=== PATIENT | male | born 1970 | race Caucasian/White ===

== ENCOUNTER 2019-04-21 12:50 | Inpatient (IN) | payer MEDICAID ==
[~2019-04-21] VITALS: Ht 165.1 cm; Wt 88.5 kg
[2019-04-21 12:00] VITALS: BP 116/76
--- NOTE | 2019-04-21 13:00 | NUR ---
RN ADMITTING NOTES ADMITTED A 48 YEARS OLD, M, TO UNIT VIA GURNEY ACCOMPANIED BY 2 AMBULANCE STAFF. A/O X4. ABLE TO MAKE NEEDS KNOWN. NO SIGNS OF DISTRESS NOTED AT THIS TIME. PATIENT ORIENTED TO ROOM, UNIT AND STAFF. V/S TAKEN AND RECORDED. REFUSED PHYSICAL ASSESSMENT. LUNGS CLEAR ON AUSCULTATION. IV ACCESS ON RAC#18, PATENT AND INTACT. SAFETY MEASURES IN PLACE, BED PLACED IN LOWEST POSITION WITH Addendum: 04/21/19 at 1427 by LEANDRA DUBOSE RN RN ADMITTING NOTES ADMITTED A 48 YEARS OLD, M, TO UNIT VIA GURNEY ACCOMPANIED BY 2 AMBULANCE STAFF. A/O X4. ABLE TO MAKE NEEDS KNOWN. FAMILY AT BEDSIDE. NO SIGNS OF DISTRESS NOTED AT THIS TIME. PATIENT ORIENTED TO ROOM, UNIT AND STAFF. V/S TAKEN AND RECORDED. REFUSED PHYSICAL ASSESSMENT. LUNGS CLEAR ON AUSCULTATION. IV ACCESS ON RAC#18, PATENT AND INTACT. NOTIFY DR. ARRIETA REGARDING THE NEW ADMIT, AWAITING FOR ORDERS. SAFETY MEASURES IN PLACE, BED PLACED IN LOWEST LOCKED POSITION WITH SIDE RAILS UP, CALL LIGHT PLACED WITHIN EASY REACH. WILL CONTINUE TO MONITOR.
[2019-04-21] MEDS ORDERED: MAG HYDROX/AL HYDROX/SIMETH 30 ML UDC PO PRN (14:00)
[2019-04-21] MEDS ORDERED: MAGNESIUM HYDROXIDE 30 ML UDC PO PRN (14:00)
[2019-04-21] MEDS ORDERED: ONDANSETRON HCL/PF 4 MG/2 ML VIAL IVP PRN (14:00)
[2019-04-21] MEDS ORDERED: Z GUARD REMEDY 2 OZ OINT TP PRN (14:00)
[2019-04-21] MEDS ORDERED: HYDROCODONE/APAP 5/325MG 1 EACH TABLET PO PRN (14:00)
[2019-04-21] MEDS ORDERED: ACETAMINOPHEN 325 MG TABLET PO PRN (14:00)
[2019-04-21] MEDS ORDERED: IBUP-1957 PO (14:11)
[2019-04-21] MEDS ORDERED: TRAM50TA2 PO (14:11)
[2019-04-21] MEDS ORDERED: CYCL10TA9 PO (14:11)
[2019-04-21 16:00] VITALS: BP 109/70
--- NOTE | 2019-04-21 18:37 | NUR ---
RN CLOSING NOTES PATIENT IN BED RESTING COMFORTABLY IN MODERATE HIGH BACK REST. A/OX 4. ABLE TO MAKE NEEDS KNOWN. NO SIGNS OF DISTRESS NOTED. ON TELEMONITORING WITH CURRENT READING OF SR WITH HR OF 80'S. IV ACCESS ON RAC #18, PATENT AND INTACT. SAFETY MEASURES IN PLACE, BED IN LOWEST LOCKED POSITION WITH SIDE RAILS UP X2. CALL LIGHT WITHIN EASY REACH. WILL ENDORSE TO REFINER OPERATOR NURSE FOR RENE.
--- NOTE | 2019-04-21 19:40 | NUR ---
ROAD PRODUCTION GENERAL MANAGER NOTE: PATIENT RESTING IN BED, NO ACUTE DISTRESS NOTED. BREATHING EVEN AND UNLABORED, NO SOB NOTED. IV TO RAC IN PLACE, TELE READING SR 84. BED LOCKED AND IN LOWEST POSITION, CALL LIGHT IN REACH. WILL CONTINUE TO MONITOR.
[2019-04-21 20:00] VITALS: BP 119/68
[2019-04-21] MEDS ORDERED: ATORVASTATIN 40 MG TABLET PO SCH (22:00)
[2019-04-21 22:15] VITALS: BP 119/68
[2019-04-21] MEDS ORDERED: MECLIZINE HCL 12.5 MG TABLET ONE (22:37)
[2019-04-21] MEDS: MECLIZINE HCL 12.5 MG TABLET PO PRN (22:59)
--- NOTE | 2019-04-21 23:00 | NUR ---
INSURANCE RISK SURVEYOR NOTE: PATIENT COMPLAINS OF DIZZINESS/VERTIGO, ANTIVERT 12.5MG 2 TABS ORAL GIVEN PER MD ORDER. WILL CONTINUE TO MONITOR.
[2019-04-22] VITALS: BP 113/69
[2019-04-22 04:00] VITALS: BP 112/69
--- NOTE | 2019-04-22 06:00 | NUR ---
CHIEF PROJECTIONIST NOTE: PATIENT RESTING IN BED, NO ACUTE DISTRESS NOTED. BREATHING EVEN AND UNLABORED, NO SOB NOTED. IV TO RAC IN PLACE, TELE READING SR 80'S. BED LOCKED AND IN LOWEST POSITION, CALL LIGHT IN REACH. WILL ENDORSE TO DAY NURSE TO CONTINUE WITH PLAN OF CARE.
[2019-04-22 06:20] LABS: BASOPHILS % (AUTO) 0.8 % (0.0-2.0); HEMATOCRIT 46 % (39-51); HEMOGLOBIN 15.5 g/dL (13.5-17.5); LYMPHOCYTES # (AUTO) 1.9 /CMM (0.8-4.8); MEAN CORPUSCULAR HGB CONC 34 g/dl (31.0-36.0); MEAN CORPUSCULAR VOLUME 84 fL (80-96); MONOCYTES # (AUTO) 0.6 /CMM (0.1-1.30); MONOCYTES % (AUTO) 11.6 % (2.0-12.0); NEUTROPHILS # (AUTO) 2.2 /CMM (1.8-8.9); NEUTROPHILS % (AUTO) 44.6 % (43.0-81.0); PLATELET COUNT (AUTO) 186 /CMM (150-450); RED BLOOD CELL COUNT(AUTO) 5.44 MIL/uL (4.5-6.0); WHITE BLOOD COUNT (AUTO) 4.9 K/uL (4.3-11.0)
[2019-04-22 06:32] LABS: CALCIUM, SERUM 8.9 mg/dL (8.5-10.1); CREATININE 0.9 mg/dL (0.6-1.3); MAGNESIUM 2.1 mg/dL (1.8-2.4); PHOSPHORUS 3.3 mg/dL (2.5-4.9); POTASSIUM 3.9 mmol/L (3.5-5.1)
--- NOTE | 2019-04-22 07:20 | NUR ---
ms rn received on bed, awake,alert,orientedx4,not in any form of distress, respirations even and unlabored,no sob noted, denies pain, denies diziness at this time,all needs attended.
[2019-04-22 08:00] VITALS: BP 106/76
[2019-04-22] MEDS ORDERED: ASPIRIN EC 325 MG TABLET.DR PO SCH (09:00)
--- NOTE | 2019-04-22 09:00 | NUR ---
ms humphreys breakfast served,due meds given,tolerated well.
[2019-04-22] MEDS: MECLIZINE HCL 12.5 MG TABLET PO PRN (09:23)
--- NOTE | 2019-04-22 11:00 | NUR ---
ms rn was seen by rose akiser/ asmita to [facility] if no symptoms noted.
[2019-04-22 12:00] VITALS: BP 108/69
[2019-04-22] MEDS ORDERED: MECL-159 PO (12:02)
[2019-04-22] MEDS ORDERED: ATOR40TA PO (12:39)
[2019-04-22] MEDS ORDERED: ASPI-1169 PO (12:39)
--- NOTE | 2019-04-22 13:00 | NUR ---
ms rn dr. rose put discharge order, instructions given and understood, went home accompanied by friend, rx of meclizine given upon discharge.
== END 2019-04-22 14:44 | disposition home or self-care (01) | DRG 111 ==
LOC: MEDSG1 12:50 → TELE1 14:50
PROVIDERS: ADMIT Internal Medicine; ATTEND Internal Medicine
DX: H81.10 Benign paroxysmal vertigo, unspecified ear (principal); F17.210 Nicotine dependence, cigarettes, uncomplicated; H55.09 Other forms of nystagmus; R53.1 Weakness; M54.5 Low back pain; H81.399 Other peripheral vertigo, unspecified ear
CPT/HCPCS: 36415; 80048-TC; 80061-TC; 83735-TC; 84100-TC; 85025-TC; 85652-TC; 87081-TC; 92611-TC; 93307-TC; 97116-TC; 97530-TC; G0378; J8597